=== PATIENT | female | born 1945 | race Caucasian/White ===

== ENCOUNTER → 2020-06-08 | Outpatient (CLI) | payer OTHER ==
[~2020-06-08] MED LIST: ALEN35TA41 PO; BUSP15 PO; CARB100 PO; GABA-1181 PO; KETOROLAC TROMETHAMINE 0.5% 5 ML OPHTHALMIC SOLUTION OD SCH; LEVE500T53 PO; MOXIFLOXACIN HCL 0.5% 3 ML OPHTHALMIC SOLUTION OD SCH; PHENYLEPHRINE HCL 2.5% 2 ML OPHTHALMIC SOLUTION OD SCH; RINGERS SOLUTION,LACTATED 500 ML IV ONE; SERT50TA12 PO; SIMV-260 PO; TROPICAMIDE 1% 2 ML OPHTHALMIC SOLUTION OD SCH
[2020-06-08 12:52] LABS: COVID AG,FIA SOURCE NASOPHARYNGEAL
== END | disposition home or self-care (01) ==
LOC: LABMN 11:20 → EDSTATUS 06-10 09:30
PROVIDERS: ATTEND Ophthalmology
DX: Z01.818 Encounter for other preprocedural examination (principal); Z20.828 Contact with and (suspected) exposure to other viral communicable diseases
CPT/HCPCS: 87426; 93005; C9803

== ENCOUNTER 2020-07-15 08:10 | Day surgery (SDC) | payer OTHER ==
[2020-07-13 09:52] LABS: COVID AG,FIA SOURCE NASOPHARYNGEAL
[~2020-07-15] VITALS: Ht 144.8 cm; Wt 52.3 kg
[~2020-07-15 08:10] MED LIST changes: -KETOROLAC TROMETHAMINE 0.5% 5 ML OPHTHALMIC SOLUTION OD SCH; -MOXIFLOXACIN HCL 0.5% 3 ML OPHTHALMIC SOLUTION OD SCH; -PHENYLEPHRINE HCL 2.5% 2 ML OPHTHALMIC SOLUTION OD SCH; -TROPICAMIDE 1% 2 ML OPHTHALMIC SOLUTION OD SCH
[2020-07-15] MEDS ORDERED: RINGERS SOLUTION,LACTATED 500 ML IV ONE (09:00)
[2020-07-15] MEDS ORDERED: MOXIFLOXACIN HCL 0.5% 3 ML OPHTHALMIC SOLUTION ONE (09:05)
[2020-07-15] MEDS ORDERED: PHENYLEPHRINE HCL 2.5% 2 ML OPHTHALMIC SOLUTION ONE (09:05)
[2020-07-15] MEDS ORDERED: TROPICAMIDE 1% 2 ML OPHTHALMIC SOLUTION ONE (09:05)
[2020-07-15] MEDS ORDERED: KETOROLAC TROMETHAMINE 0.5% 5 ML OPHTHALMIC SOLUTION ONE (09:05)
[2020-07-15] MEDS: MOXIFLOXACIN HCL 0.5% 3 ML OPHTHALMIC SOLUTION OD SCH ×3 (09:38→10:10)
[2020-07-15] MEDS: KETOROLAC TROMETHAMINE 0.5% 5 ML OPHTHALMIC SOLUTION OD SCH ×3 (09:38→10:10)
[2020-07-15] MEDS: PHENYLEPHRINE HCL 2.5% 2 ML OPHTHALMIC SOLUTION OD SCH ×3 (09:38→10:10)
[2020-07-15] MEDS: TROPICAMIDE 1% 2 ML OPHTHALMIC SOLUTION OD SCH ×3 (09:39→10:10)
[2020-07-15] MEDS ORDERED: HYALURONATE SOD/CHONDROITIN SOD 0.5 ML VIAL IO ONE (11:25)
[2020-07-15] MEDS ORDERED: POVIDONE-IODINE 10% 15 ML SOLUTION UD ONE (11:25)
[2020-07-15] MEDS ORDERED: EPINEPHrine 1:1,000 [1 MG/ML] AMP ONE (11:25)
[2020-07-15] MEDS ORDERED: HYALURONATE SODIUM 12 MG/ML 0.8 ML SYRINGE IO ONE (11:25)
[2020-07-15] MEDS ORDERED: TETRACAINE HCL/PF 0.5% 4 ML OPHTHALMIC SOLUTION ONE (11:25)
[2020-07-15] MEDS ORDERED: LIDOCAINE/PF 1% 2 ML VIAL ONE (11:25)
[2020-07-15] MEDS ORDERED: FentaNYL CITRATE-PF 100 MCG/2 ML VIAL IVP ONE (12:00)
[2020-07-15] MEDS ORDERED: MIDAZOLAM HCL 2 MG/2 ML VIAL IVP ONE (12:00)
== END 2020-07-15 12:45 | disposition home or self-care (01) ==
LOC: SURGERY 08:10
PROVIDERS: ATTEND Ophthalmology
DX: H25.11 Age-related nuclear cataract, right eye (principal); Z20.828 Contact with and (suspected) exposure to other viral communicable diseases; E78.00 Pure hypercholesterolemia, unspecified; H40.9 Unspecified glaucoma; G40.109 Localization-related (focal) (partial) symptomatic epilepsy and epileptic syndromes with simple partial seizures, not intractable, without status epilepticus
CPT/HCPCS: 66984; 87426; C9803; J0171; J2250; J3010; J3490 ×2; J7120; V2632

== ENCOUNTER → 2020-08-12 | Day surgery (SDC) | payer OTHER ==
[2020-08-10 10:20] LABS: COVID AG,FIA SOURCE NASOPHARYNGEAL
[~2020-08-12] MED LIST changes: -ALEN35TA41 PO; +ALEN70TA65 PO; +CALC-877 PO; -CARB100 PO; +CARB200T6 PO; +CETI-450 PO; +KETOROLAC TROMETHAMINE 0.5% 5 ML OPHTHALMIC SOLUTION ONE; +KETOROLAC TROMETHAMINE 0.5% 5 ML OPHTHALMIC SOLUTION OS SCH; +MOXIFLOXACIN HCL 0.5% 3 ML OPHTHALMIC SOLUTION ONE; +MOXIFLOXACIN HCL 0.5% 3 ML OPHTHALMIC SOLUTION OS SCH; +PHENYLEPHRINE HCL 2.5% 2 ML OPHTHALMIC SOLUTION ONE; +PHENYLEPHRINE HCL 2.5% 2 ML OPHTHALMIC SOLUTION OS SCH; +RINGERS SOLUTION,LACTATED 0 ML IV ONE; +SIMV-259 PO; -SIMV-260 PO; +TROPICAMIDE 1% 2 ML OPHTHALMIC SOLUTION ONE; +TROPICAMIDE 1% 2 ML OPHTHALMIC SOLUTION OS SCH; +XALA2.5OS OU
== END | disposition home or self-care (01) ==
LOC: SURGERY 11:45
PROVIDERS: ATTEND Ophthalmology
DX: H26.8 Other specified cataract (principal); Z53.8 Procedure and treatment not carried out for other reasons
CPT/HCPCS: 87426; C9803; J7120

== ENCOUNTER 2020-09-09 06:06 | Day surgery (SDC) | payer OTHER ==
[2020-09-07 20:04] LABS: COVID AG,FIA SOURCE NASOPHARYNGEAL
[~2020-09-09] VITALS: Ht 147.3 cm; Wt 52.7 kg
[~2020-09-09 06:06] MED LIST changes: -KETOROLAC TROMETHAMINE 0.5% 5 ML OPHTHALMIC SOLUTION OS SCH; -MOXIFLOXACIN HCL 0.5% 3 ML OPHTHALMIC SOLUTION OS SCH; -PHENYLEPHRINE HCL 2.5% 2 ML OPHTHALMIC SOLUTION OS SCH; -RINGERS SOLUTION,LACTATED 0 ML IV ONE; +SERT-158 PO; -SERT50TA12 PO; -TROPICAMIDE 1% 2 ML OPHTHALMIC SOLUTION OS SCH
[2020-09-09] MEDS: TROPICAMIDE 1% 2 ML OPHTHALMIC SOLUTION OS SCH ×3 (06:50→07:06)
[2020-09-09] MEDS: KETOROLAC TROMETHAMINE 0.5% 5 ML OPHTHALMIC SOLUTION OS SCH ×3 (06:50→07:05)
[2020-09-09] MEDS: MOXIFLOXACIN HCL 0.5% 3 ML OPHTHALMIC SOLUTION OS SCH ×3 (06:50→07:06)
[2020-09-09] MEDS: PHENYLEPHRINE HCL 2.5% 2 ML OPHTHALMIC SOLUTION OS SCH ×3 (06:50→07:05)
[2020-09-09] MEDS ORDERED: FentaNYL CITRATE PF 100 MCG/2 ML VIAL IVP ONE (12:00)
[2020-09-09] MEDS ORDERED: MIDAZOLAM HCL 2 MG/2 ML VIAL IVP ONE (12:00)
== END 2020-09-09 09:55 | disposition home or self-care (01) ==
LOC: SURGERY 06:06
PROVIDERS: ATTEND Ophthalmology
DX: H25.12 Age-related nuclear cataract, left eye (principal); F32.9 Major depressive disorder, single episode, unspecified; H40.1124 Primary open-angle glaucoma, left eye, indeterminate stage; Z91.011 Allergy to milk products; Z91.018 Allergy to other foods; E78.00 Pure hypercholesterolemia, unspecified; Z79.899 Other long term (current) drug therapy; Z98.890 Other specified postprocedural states
CPT/HCPCS: 66984; 87426; 93005; C9803; J2250; J3010; J7120; V2632